=== PATIENT | female | born 1975 | race Caucasian/White ===

== ENCOUNTER 2017-03-24 11:11 | Emergency (ER) | payer OTHER ==
[2017-03-24 11:24] VITALS: BP 118/93
--- NOTE | 2017-03-24 11:35 | UC ---
UC General HPI - HPI Summary HPI Summary: per software engineer intern "pt here from , started vomitting, nausea and having diarrhea on Saturday. Vomiting stopped Fri night but diarrhea has continued. Denies fever. Able to keep down small sips of fliud and bland food." - History of Current Complaint Chief Complaint: UCGI Stated Complaint: diarrhea/vomiting Time Seen by Provider: 03/24/17 11:27 Hx Last Menstrual Period: 03/21/17 - Allergy/Home Medications Allergies/Adverse Reactions: Allergies Allergy/AdvReac Type Severity Reaction Status Date / Time No Known Allergies Allergy Verified 03/24/17 11:24 Home Medications: Home Medications Ibuprofen [Ibuprofen 200 MG] 400 mg PO PRN 03/24/17 [History] Nebivolol HCl [Bystolic] 10 mg PO DAILY 03/24/17 [History Confirmed 03/24/17] PMH/Surg Hx/FS Hx/Imm Hx - Surgical History Surgical History: Yes Surgery Procedure, Year, and Place: gallbladder - Social History Alcohol Use: Occasionally Substance Use Type: None Smoking Status (MU): Never Smoked Tobacco Physical Exam Vital Signs: Initial Vital Signs Temp 98.1 F 03/24/17 11:16 Pulse 124 03/24/17 11:16 Resp 16 03/24/17 11:16 BP 118/93 03/24/17 11:16 Pulse Ox 100 03/24/17 11:16
--- NOTE | 2017-03-24 11:50 | UC ---
General HPI - HPI Summary HPI Summary: per manager agriculture "pt here from , started vomiting, nausea and having diarrhea on Saturday. Vomiting stopped Fri night but diarrhea has continued. Denies fever. Able to keep down small sips of fluid and bland food." - History of Current Complaint Chief Complaint: UCGI Stated Complaint: diarrhea/vomiting Time Seen by Provider: 03/24/17 11:27 Hx Obtained From: Patient Hx Last Menstrual Period: 03/21/17 Onset/Duration: Sudden Onset, Lasting Days Onset Severity: Mild Current Severity: Moderate Associated Signs & Symptoms: Positive: Abdominal Pain, Diarrhea, Nausea - Allergy/Home Medications Allergies/Adverse Reactions: Allergies Allergy/AdvReac Type Severity Reaction Status Date / Time No Known Allergies Allergy Verified 03/24/17 11:24 Home Medications: Home Medications Ibuprofen [Ibuprofen 200 MG] 400 mg PO PRN 03/24/17 [History] Nebivolol HCl [Bystolic] 10 mg PO DAILY 03/24/17 [History Confirmed 03/24/17] PMH/Surg Hx/FS Hx/Imm Hx Previously Healthy: Yes - Surgical History Surgical History: Yes Surgery Procedure, Year, and Place: gallbladder - Family History Known Family History: Negative: Cardiac Disease, Hypertension - Social History Alcohol Use: Occasionally Substance Use Type: None Smoking Status (MU): Never Smoked Tobacco Review of Systems Constitutional: Negative Skin: Negative Eyes: Negative ENT: Negative Respiratory: Negative Cardiovascular: Negative Gastrointestinal: Abdominal Pain, Vomiting, Diarrhea Genitourinary: Negative Motor: Negative Neurovascular: Negative Musculoskeletal: Negative Neurological: Negative Psychological: Negative All Other Systems Reviewed And Are Negative: Yes Physical Exam Triage Information Reviewed: Yes Appearance: Well-Nourished, Ill-Appearing, Pain Distress Vital Signs: Initial Vital Signs Temp 98.1 F 03/24/17 11:16 Pulse 124 03/24/17 11:16 Resp 16 03/24/17 11:16 BP 118/93 03/24/17 11:16 Pulse Ox 100 03/24/17 11:16 Vital Signs Reviewed: Yes Eye Exam: Normal ENT Exam: Normal ENT: Positive: Hearing grossly normal, Pharynx normal, TMs normal Dental Exam: Normal Neck exam: Normal Respiratory Exam: Normal Respiratory: Positive: Chest non-tender, Lungs clear, Normal breath sounds Cardiovascular Exam: Normal Cardiovascular: Positive: RRR, No Murmur, Pulses Normal Abdomen Description: Positive: Soft, CVA Tenderness (R) - eg, CVA Tenderness (L ) - neg, Other: - diffusly tender, no rebound tenderness, no masses Bowel Sounds: Positive: Present, Hyperactive Musculoskeletal Exam: Normal Neurological Exam: Normal Psychological Exam: Normal Skin Exam: Normal Course/Dx - Course Course Of Treatment: hx obtained, exam performed ,meds reviewed, zofran givena nd fluid challenge completed. tolerating saltines and water - Differential Dx - Multi-Symptom Provider Diagnoses: gastroenteritis Discharge - Discharge Plan Condition: Stable Disposition: HOME Prescriptions: Dicyclomine CAP* [Bentyl CAP*] 10 mg PO TID PRN #21 cap PRN Reason: Diarrhea Ondansetron ODT TAB* [Zofran 4 MG Odt TAB*] 4 mg PO Q6H PRN #24 tab.odt PRN Reason: Nausea Patient Education Materials: Gastroenteritis (ED) Referrals: No Primary Care Phys,NOPCP [Primary Care Provider] - Additional Instructions: 1. take the medication as prescribed. 2. increase fluid intake and eat as tolerated 3. stay cool and get rest.
[2017-03-24] MEDS ORDERED: Ondansetron ODT TAB* 4 MG PO ONE (12:12)
== END 2017-03-24 12:38 | disposition home or self-care (01) ==
LOC: UCCORT 11:11
DX: K52.9 Noninfective gastroenteritis and colitis, unspecified (principal); Z90.49 Acquired absence of other specified parts of digestive tract
CPT/HCPCS: 99202; A9270-GY; G0463